=== PATIENT | female | born 1985 | race Caucasian/White ===

== ENCOUNTER 2017-01-13 00:50 | Emergency (ER) | payer OTHER ==
--- NOTE | 2017-01-13 01:49 | RAD ---
PROCEDURE: Abdomen 1 View Clinical History: swallowed a coke can tab Indication: Evaluation for foreign body Comparison: None Technique: Single supine view of the abdomen and pelvis. Findings: There is no gross evidence of free air in the abdomen or the pelvis on this single supine view of the abdomen and pelvis. The small and large bowel gas pattern does not show any evidence of obstruction, ileus or bowel wall thickening. There is no visualization of radiopaque calculi in the outline of the urinary tract. There is no visualization of radiopaque foreign bodies in the imaged portions of the abdomen and the pelvis There is mild constipation. Impression: There is no visualization of radiopaque foreign bodies in the imaged portions of the abdomen and the pelvis There is mild constipation. Electronically signed by: Kevin Rowan MD 01/13/2017 1:47 AM CDT Workstation: [id number]
--- NOTE | 2017-01-13 01:50 | RAD ---
PROCEDURE: Chest,2 Views CLINICAL HISTORY: swallowed a coke can tab. Evaluation for foreign body INDICATION: Evaluation for foreign body COMPARISON: X-ray of the abdomen and pelvis done on the same day TECHNIQUE: PA and and lateral chest radiographs were obtained. FINDINGS: There is no visualization of radiopaque foreign bodies in the imaged portions of the chest There are no discrete airspace infiltrates, pneumothoraces or pleural effusions. The pulmonary vascularity is normal The cardiomediastinal silhouette is unremarkable for patient's age and sex. IMPRESSION: There is no visualization of radiopaque foreign bodies in the imaged portions of the chest Electronically signed by: Kevin Rowan MD 01/13/2017 1:49 AM CDT Workstation: [id number]
--- NOTE | 2017-01-13 02:31 | RAD ---
Procedure: XR ABDOMEN 2 VIEWS SUPINE ERECT Exam Date: 01/13/2017 Ordering Provider: Maksim Dowd Clinical Indication: Foreign body ingestion Comparison: 01/13/2017 0133 Findings: There is no small or large bowel distention. There is no pneumoperitoneum. There are no suspicious calcifications. There is no acute skeletal abnormality. There is suggestion of a 3 cm foreign body projecting over the left lower quadrant. Impression: 1. There is suggestion of a 3 cm foreign body projecting over the left lower quadrant. Electronically signed by: Kai Quiros MD 01/13/2017 2:30 AM CDT
--- NOTE | 2017-01-13 02:39 | ED.PDOC ---
History of Present Illness - General Chief Complaint: General Stated Complaint: Swollowed pop can tab Time Seen by Provider: 01/13/17 01:14 Source: patient Exam Limitations: no limitations - History of Present Illness Initial Comments: the patient is a 31-year-old female presenting to the emergency room secondary to swallowing a Coke can tab approximately 7 hours prior to arrival. It was ingested accidentally. She is having no pain and no obstruction symptoms. No vomiting. Improving Factors: nothing Worsening Factors: nothing Associated Symptoms: denies symptoms Allergies/Adverse Reactions: Allergies Sulfa Antibiotics Allergy (Verified 01/13/17 01:04) Home Medications: Ambulatory Orders Aripiprazole 10 mg PO DAILY 01/13/17 Bupropion HCl [Bupropion HCl Xl] 300 mg PO DAILY 01/13/17 Lamotrigine 100 mg PO DAILY 01/13/17 Review of Systems - Review of Systems Constitutional: States: no symptoms reported EENTM: States: no symptoms reported Respiratory: States: no symptoms reported Cardiology: States: no symptoms reported Gastrointestinal/Abdominal: States: no symptoms reported Genitourinary: States: no symptoms reported Musculoskeletal: States: no symptoms reported Skin: States: no symptoms reported Neurological: States: no symptoms reported Endocrine: States: no symptoms reported All other Systems: No Change from Baseline Past Medical History (General) - Patient Medical History Hx Stroke: No Hx Asthma: Yes Hx Cardiac Disorders: No Hx Congestive Heart Failure: No Hx Diabetes: No Hx Cancer: No Hx Hepatitis C: No - Vaccination History Hx Tetanus, Diphtheria Vaccination: No Hx Influenza Vaccination: Yes Hx Pneumococcal Vaccination: No - Social History Hx Tobacco Use: No - Quit 7 yrs ago Hx Chewing Tobacco Use: No Hx Alcohol Use: No Hx Substance Use: No Hx Substance Use Treatment: No Hx Depression: No Feels Threatened In Home Enviroment: No Feels Threatened In a Relationship: No Hx Physical Abuse: No Hx Emotional Abuse: No Hx Suspected Abuse: No - Female History Patient is a Female of Child Bearing Age (10 -59 yrs old): Yes Patient : No Family Medical History - Family History Grandparents Family History: Unknown Physical Exam - Physical Exam General Appearance: Alert, Comfortable, No apparent distress Eye Exam: bilateral normal Ears, Nose, Throat: hearing grossly normal Neck: full range of motion Respiratory: no respiratory distress, no accessory muscle use Cardiovascular/Chest: no edema Gastrointestinal/Abdominal: soft - obese Rectal Exam: deferred Extremity: normal range of motion, no pedal edema, normal capillary refill 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 Multiple x-rays of the chest abdomen and pelvis have been performed. Radiology believes they can see the foreign body in the left lower quadrant. This does indicate that the object will likely pass. There is no evidence of obstruction. If the patient develops severe abdominal pain or starts having nausea or vomiting then she will need further evaluation. ER warnings were given. - EKG/XRAY/CT CT Ordered: No CT Interpretation Call Back: No Departure - Departure Clinical Impression: Ingestion of foreign body Qualifiers: Encounter type: initial encounter Qualified Code(s): T18.9XXA - Foreign body of alimentary tract, part unspecified, initial encounter Disposition: Discharge to Home or Self Care Condition: Fair Departure Forms: ED Discharge - Pt. Copy, Patient Portal Self Enrollment Instructions: DI for Accidental Ingestion -- Adult Diet: regular diet Activity: increase activity as tolerated Home Medications: Ambulatory Orders Aripiprazole 10 mg PO DAILY 01/13/17 Bupropion HCl [Bupropion HCl Xl] 300 mg PO DAILY 01/13/17 Lamotrigine 100 mg PO DAILY 01/13/17 Additional Instructions: the patient is a 31-year-old female presenting after ingesting a Coke can tab approximately 6-7 hours prior to arrival. Multiple x-rays of the chest abdomen and pelvis have been performed. Radiology believes they can see the foreign body in the left lower quadrant. This does indicate that the object will likely pass. There is no evidence of obstruction. If the patient develops severe abdominal pain or starts having nausea or vomiting then she will need further evaluation. ER warnings were given.
[2017-01-13 02:49] VITALS: BP 127/90; TEMP 97.3; O2SAT 95
== END 2017-01-13 02:45 | disposition home or self-care (01) ==
LOC: ER 00:50
DX: T18.9XXA Foreign body of alimentary tract, part unspecified, initial encounter (principal); J45.909 Unspecified asthma, uncomplicated; Z87.891 Personal history of nicotine dependence; Z88.2 Allergy status to sulfonamides; Z79.899 Other long term (current) drug therapy; X58.XXXA Exposure to other specified factors, initial encounter